=== PATIENT | male | born 1950 | race Caucasian/White ===

== ENCOUNTER → 2020-03-06 | Outpatient (CLI) | payer OTHER | END | disposition home or self-care (01) | LOC: RAD 13:38 | PROVIDERS: ATTEND Urology | DX: N20.0 Calculus of kidney (principal) ==

== ENCOUNTER 2022-07-08 07:03 | Outpatient (CLI) | payer OTHER | END 2022-07-08 07:08 | disposition home or self-care (01) | LOC: RAD 07:03 | PROVIDERS: ATTEND Urology | DX: N20.0 Calculus of kidney (principal) ==